=== PATIENT | female | born 1990 | race Caucasian/White ===

== ENCOUNTER 2019-10-10 18:25 | Emergency (ER) | payer MEDICAID, SELFPAY ==
[2019-10-10 18:25] VITALS: BP 129/74; PULSE 113; TEMP 37.3; O2SAT 95
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
--- NOTE | 2019-10-10 19:33 | NUR.NOTE ---
Pt on phone with
[2019-10-10 20:08] VITALS: BP 125/80; PULSE 98; RESP 16; TEMP 37.3; O2SAT 97
== END 2019-10-10 20:00 | disposition home or self-care (01) ==
PROVIDERS: Emergency Provider Physician Assistant; PCP Family Medicine
DX: S70.212A Abrasion, left hip, initial encounter (principal); S80.12XA Contusion of left lower leg, initial encounter; Y04.8XXA Assault by other bodily force, initial encounter; Z33.1 Pregnant state, incidental; Z71.1 Person with feared health complaint in whom no diagnosis is made; Y04.8XXD Assault by other bodily force, subsequent encounter
CPT/HCPCS: 99281; 99283

== ENCOUNTER 2019-10-10 21:04 | Emergency (ER) | payer MEDICAID, SELFPAY ==
[2019-10-10 21:18] VITALS: BP 161/102; PULSE 99; RESP 20; TEMP 36.5; O2SAT 95
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
[2019-10-10 21:20] VITALS: RESP 16
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
== END 2019-10-10 22:15 | disposition home or self-care (01) ==
PROVIDERS: Emergency Provider Student in an Organized Health Care Education/Training Program; PCP Family Medicine
DX: Z71.1 Person with feared health complaint in whom no diagnosis is made (principal); Y04.8XXD Assault by other bodily force, subsequent encounter
CPT/HCPCS: 99281

== ENCOUNTER 2019-11-04 15:55 | Emergency (ER) | payer MEDICAID, SELFPAY ==
[2019-11-04 16:06] VITALS: BP 135/84; PULSE 103; RESP 18; TEMP 36.4; O2SAT 92
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
--- NOTE | 2019-11-04 16:41 | NUR.NOTE ---
pt c/o of a Tic bite on the left lower leg, she also c/o pus coming fromblisters on her right foot, she has a tiny scab at the right 5th knuckle.Nursing Note:
[2019-11-04 17:11] LABS: Abs Immature Grans 0.04 k/cumm (0.0-0.09); Absolute Basophil Count 0.01 k/cumm (0.0-0.2); Absolute Eosinophil Count 0.14 k/cumm (0.0-0.7); Absolute Lymphocyte Count 3.46 k/cumm (1.2-3.4); Absolute Monocyte Count 0.78 k/cumm (0.11-0.7); Absolute Neutrophil Count 9.41 k/cumm (1.2-6.7); Basophils % 0.1; HCT 37.8 % (36.0-46.0); HGB 12.8 g/dL (12.0-15.5); Immature Grans % 0.3 %; Mean Corp. HGB Concentration 33.9 g/dL (32.0-36.0); Mean Corpuscular Hemoglobin 30.6 pg (27.0-33.0); Mean Corpuscular Volume 90.4 fL (80-95); Mean Platelet Volume 9.4 fL (8.0-11.0); Monocytes % 5.6; Platelet Count 248 x1000/uL (130-400); RBC 4.18 m/cumm (4.00-5.20); RBC Distribution Width 13.4 % (11.7-14.6); White Blood Cell Count 13.84 k/cumm (4.4-10.8)
[2019-11-04 17:37] LABS: HCG Quant, Pregnancy < 1 mIU/mL (1-3)
[2019-11-04 18:36] LABS: Bilirubin Negative (Negative); Blood Trace-intact (Negative); Clarity Cloudy (Clear); Glucose Negative (Negative); Ketones Negative (Negative); Leukocyte Esterase Negative (Negative); Nitrite Negative (Negative); Specific Gravity >= 1.030 (1.005-1.025); Urobilinogen 0.2 EU/dL (Up TO 0.2)
[2019-11-04 18:44] LABS: *AMPHETAMINES SCREEN URINE Negative (Negative); *BARBITURATES SCREEN URINE Negative (Negative); *BENZODIAZEPINES SCREEN URINE Negative (Negative); Cannabinoids THC POSITIVE (Negative); Cocaine Screen,Urine Negative (Negative); METHADONE URINE SCREEN POSITIVE (Negative); OPIATES URINE SCREEN Negative (Negative)
[2019-11-04 19:05] LABS: Bacteria Negative HPF (Negative); C & S Indicated? No; Casts Negative LPF (Negative); Crystals Moderate Amorphous HPF (Negative); Epithelial Cells Rare HPF (Negative); Mucus Negative (Negative); Other Cells Negative (Negative); RBC Negative HPF (0-2); WBC 0-2 HPF (0-5)
[2019-11-04 19:19] LABS: Tricyclic Antidepressants Negative (Negative)
[2019-11-06 09:48] LABS: HIV-1/2 Ag & Ab Screen Negative (Negative)
[2019-11-06 10:42] LABS: Hepatitis A Antibody IgM Negative (Negative); Hepatitis B Core Antibody Negative (Negative); Hepatitis B surface Ag Negative (Negative); Hepatitis C Ab w Rflx HCV PCR Negative (Negative)
== END 2019-11-04 19:35 | disposition home or self-care (01) ==
LOC: ER 19:36
PROVIDERS: Emergency Provider Physician Assistant; PCP Family Medicine
DX: S61.431A Puncture wound without foreign body of right hand, initial encounter (principal); W46.1XXA Contact with contaminated hypodermic needle, initial encounter; Y08.89XA Assault by other specified means, initial encounter; S90.821A Blister (nonthermal), right foot, initial encounter; X58.XXXA Exposure to other specified factors, initial encounter; S80.862A Insect bite (nonvenomous), left lower leg, initial encounter; W57.XXXA Bitten or stung by nonvenomous insect and other nonvenomous arthropods, initial encounter; R42 Dizziness and giddiness; E86.0 Dehydration
CPT/HCPCS: 36415; 80307; 81025; 86704; 86709; 86803; 87340; 87389; 99283; 81003; 81015; 84702; 85025